=== PATIENT | female | born 1990 | race Two or more races ===

== ENCOUNTER 2020-08-21 09:39 | Emergency (ER) | payer OTHER ==
[~2020-08-21] VITALS: Ht 172.7 cm; Wt 86.2 kg
[~2020-08-21 09:39] MED LIST: ALBUTEROL0.63 MG/3
[2020-08-21] MEDS ORDERED: OSEL75CA PO (11:37)
[2020-08-21] MEDS ORDERED: DOLOGEN CAPLET1 EACH PO (11:37)
[2020-08-21] MEDS ORDERED: TUSNEL LIQUID178 ML PO (11:37)
[2020-08-21] MEDS ORDERED: ALBUTEROL2.5 MG/3 M IH (11:37)
== END 2020-08-21 12:16 | disposition home or self-care (01) ==
LOC: ER 09:39
DX: B34.9 Viral infection, unspecified (principal); J11.1 Influenza due to unidentified influenza virus with other respiratory manifestations; Z11.52 Encounter for screening for COVID-19

== ENCOUNTER → 2021-03-07 | Emergency (ER) | payer OTHER ==
[~2021-03-07] VITALS: Ht 175.3 cm; Wt 86.2 kg
[~2021-03-07] MED LIST changes: +24HR ALLERGY REL5 MG; +ALBUTEROL2.5 MG/3 M IH; +DOLOGEN CAPLET1 EACH PO; +FLOVENT HFA10.6 GM IH; +OSEL75CA PO; +SINGULAIR10 MG; +TUSNEL LIQUID178 ML PO; +ZITHROMAX500 MG PO; +ZYNCOF 20-400120 ML PO
== END | disposition home or self-care (01) ==
LOC: ER 23:00
DX: A49.3 Mycoplasma infection, unspecified site (principal); J45.901 Unspecified asthma with (acute) exacerbation; Z03.818 Encounter for observation for suspected exposure to other biological agents ruled out

== ENCOUNTER 2022-06-18 22:41 | Emergency (ER) | payer OTHER ==
[~2022-06-18] VITALS: Ht 175.3 cm; Wt 90.7 kg
== END 2022-06-19 00:48 | disposition home or self-care (01) ==
LOC: ER 22:41
DX: J06.9 Acute upper respiratory infection, unspecified (principal)

== ENCOUNTER 2022-08-13 19:15 | Emergency (ER) | payer OTHER ==
[~2022-08-13] VITALS: Ht 162.6 cm; Wt 68.0 kg
[2022-08-13] MEDS ORDERED: SYMBICORT 80/10.2 GM (19:28)
== END 2022-08-13 22:53 | disposition home or self-care (01) ==
LOC: ER 19:15
DX: J45.901 Unspecified asthma with (acute) exacerbation (principal); Z20.822 Contact with and (suspected) exposure to COVID-19

== ENCOUNTER 2022-11-03 09:33 | Emergency (ER) | payer OTHER ==
[~2022-11-03] VITALS: Ht 175.3 cm; Wt 95.3 kg
[~2022-11-03 09:33] MED LIST changes: +SYMBICORT 80/10.2 GM
== END 2022-11-03 16:19 | disposition home or self-care (01) ==
LOC: ER 09:33
DX: J45.901 Unspecified asthma with (acute) exacerbation (principal); J06.9 Acute upper respiratory infection, unspecified

== ENCOUNTER 2022-12-30 09:01 | Emergency (ER) | payer OTHER ==
[~2022-12-30] VITALS: Ht 175.3 cm; Wt 96.6 kg
== END 2022-12-30 13:29 | disposition home or self-care (01) ==
LOC: ER 09:01
PROVIDERS: General Practice
DX: J32.9 Chronic sinusitis, unspecified (principal)

== ENCOUNTER 2024-07-18 12:34 | Emergency (ER) | payer OTHER ==
[~2024-07-18] VITALS: Ht 175.3 cm; Wt 83.5 kg
[2024-07-18] MEDS ORDERED: CEFTRIAXONE SODIUM 1,000 MG VIAL IM STA (15:47)
[2024-07-18] MEDS ORDERED: METHYLPREDNISOLONE SOD SUCC 125 MG VIAL IM STA (15:47)
== END 2024-07-18 16:03 | disposition home or self-care (01) ==
LOC: ER 12:37
DX: J06.9 Acute upper respiratory infection, unspecified (principal); Z20.822 Contact with and (suspected) exposure to COVID-19